=== PATIENT | male | born 1945 | race Caucasian/White ===

== ENCOUNTER 2018-03-31 13:03 | Inpatient (IN) | payer MEDICARE, MEDICAID ==
[2018-03-31 13:42] LABS: #Lymphocytes 0.9 thou/uL (1.20-3.40); #Monocytes 0.9 thou/uL (0.11-0.59); #Neutrophils 7.5 thou/uL (1.40-6.50); %Basophils 0.3 % (0.0-1.0); %Eosinophils 0.4 % (0.0-10.0); %Lymphocytes 9.6 % (21.0-51.0); %Monocytes 9.4 % (0.0-10.0); %Neutrophils 80.3 % (42.0-75.0); Hemoglobin 8.1 g/dL (14.0-18.0); Mean Corpuscular HGB CONC 30.7 g/dL (32.0-36.0); Mean Corpuscular Hemoglobin 28.6 pg (27.0-31.0); Mean Corpuscular Volume 93.4 fL (78.0-98.0); Platelet Count 219 thou/uL (130-400); RBC Distribution Width 12.9 % (11.5-14.5); Red Blood Cell (RBC) Count 2.82 mill/uL (4.70-6.10); White Blood Cell (WBC) Count 9.3 thou/uL (4.8-10.8)
[2018-03-31 14:04] LABS: ALT (SGPT) 11 U/L (8-55); AST (SGOT) 10 U/L (5-34); Albumin 3.5 g/dL (3.4-4.8); Alkaline Phosphatase 96 U/L (40-150); Anion Gap 14 mmol/L (10-20); BUN (Urea Nitrogen) 57 mg/dL (8.4-25.7); Bilirubin, Total 0.4 mg/dL (0.2-1.2); Calc. Creatinine Clearance 0 mL/min (70-130); Calcium 8.7 mg/dL (7.8-10.44); Carbon Dioxide 30 mmol/L (23-31); Chloride 100 mmol/L (98-107); Estimated GFR-MDRD 14; Globulin 4.8 g/dL (2.4-3.5); Glucose 103 mg/dL (80-115); Magnesium 1.9 mg/dL (1.6-2.6); Potassium 4.2 mmol/L (3.5-5.1); Protein, Total 8.3 g/dL (5.8-8.1); Sodium 140 mmol/L (136-145)
[2018-03-31 14:25] LABS: Bilirubin Negative (Negative); Blood, Urine Moderate (Negative); Clarity CLEAR (Clear); Glucose, Urine (Dipstick) Negative (Negative); Leukocyte Small (Negative); Nitrite Negative (Negative); Protein, Urine (Dipstick) 100 mg/dL (Neg-Trace); Specific Gravity, Urine 1.011 (1.002-1.036); Urobilinogen 0.2 mg/dL (0.2-1.0)
[2018-03-31 14:35] LABS: Bacteria/HPF 1+ HPF (None Seen); Hyaline Casts/LPF 0-3 HYALINE CAST LPF (0-3 Hyaline); Squamous Epithelial None Seen HPF (0-3); WBC/HPF 21-50 HPF (0-3)
[2018-03-31] MEDS ORDERED: Sodium Chloride 0.9% 100 ML ONE (16:06)
[2018-03-31] MEDS ORDERED: cefTRIAXone\\ROCEPHIN 1 GM VIAL ONE (16:06)
[2018-03-31] MEDS ORDERED: Furosemide 40 MG/4 ML VIAL ONE (16:27)
[2018-03-31] MEDS ORDERED: Acetaminophen 325 MG TAB PO PRN (17:22)
[2018-03-31] MEDS ORDERED: Senokot S 8.6-50 MG TAB PO PRN (17:22)
[2018-03-31] MEDS ORDERED: Guaifenesin DM 100-10/5 ML UDCUP PO PRN (17:22)
[2018-03-31] MEDS ORDERED: Furosemide 100 MG/10 ML VIAL SLOW IVP SCH (17:30)
[2018-03-31 18:14] LABS: Iron 31 ug/dL (65-175); Iron Binding Capacity, Total 238 mcg/dL (261-462)
[2018-03-31 18:19] VITALS: BP 127/61; TEMP 97.4
[2018-03-31 18:21] VITALS: BMI 38.7
[2018-03-31] MEDS ORDERED: Lorazepam 2 MG/ML VIAL SLOW IVP PRN (18:31)
--- NOTE | 2018-03-31 20:17 | RAD ---
FRONTAL RADIOGRAPH CHEST PORTABLE UPRIGHT 03/31/18 COMPARISON: None. HISTORY: Shortness of breath, abnormal laboratory assessment. FINDINGS: The cardiac silhouette is prominent. Mild pulmonary vascular congestion. Mild elevation of a right he midiaphragm. No pneumothorax, pleural fluid, focal consolidation or alveolar edema. IMPRESSION: Prominent cardiac silhouette and pulmonary vascular congestion. POS: [facility]
[2018-03-31] MEDS ORDERED: risperiDONE 1 MG TAB PO SCH (21:00)
[2018-03-31] MEDS ORDERED: Atorvastatin Calcium 20 MG TAB PO SCH (21:00)
--- NOTE | 2018-03-31 21:34 | HP ---
REASON FOR ADMISSION: Acute kidney injury, UTI, volume overload. HISTORY OF PRESENTING ILLNESS: The patient had routine labs done yesterday in Dr. Isaiah Caruso, his [facility] physician's office. Apparently, labs showed elevated creatinine from his baseline. He w as asked to come to the emergency room. Patient has shortness of breath. He states he feels bad but cannot explain any further. No chest pain or palpitations. He has cough with expectoration due to his smoking habit. No fever. I discussed with Ms. Gilliam, the nurse taking care of him at the correction at [facility]. There is no history of recent antibiotic intake. No history of diarr hea or anything out of the ordinary from last 4 weeks. Patient apparently smokes almost a pack a day at the correction. He normally mobilizes himself into a wheelchair and back into his bed. PAST MEDICAL AND SURGICAL HISTORY: Chronic kidney disease stage 3, dyslipidemia, hypertension, COPD, schizoaffective disorder, dyslipidemia, history of CHF, benign prostatic hypertrophy, chronic venous stasis in lower extremities. CURRENT MEDICATIONS: Per correction records, patient is on Cardizem CD 120 mg daily, Risperdal 2 m g p.o. at bedtime, lovastatin 20 mg at bedtime, vitamin D 2000 units p.o. daily, Lasix 40 mg p.o. madie ly, Flomax 0.4 mg p.o. daily, DuoNebs q.6 hourly, Breo Ellipta inhaler daily, aspirin 81 mg p.o. gregg y. ALLERGIES: No known drug allergies. PERSONAL HISTORY: Smokes one pack a day. Does not abuse alcohol or drugs. 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 FAMILY HISTORY: The patient is not nor does he have any children per patient. Mother i n her 80s had a lump in her chest. Father of old age at 70 years per patient. CODE STATUS: FULL. Power of business attorney is Mr. Hodan Ramirez, brother, , alternate number for correction is [phone]. REVIEW OF SYSTEMS: The following complete review of systems was negative, unless otherwise mentioned in the HPI or below: Constitutional: Weight loss or gain, ability to conduct usual activities. Skin: Rash, itching. Eyes: Double vision, pain. ENT/Mouth: Nose bleeding, neck stiffness, pain, tenderness. Cardiovascular: Palpitations, dyspnea on exertion, orthopnea. Respiratory: Shortness of breath, wheezing, cough, hemoptysis, fever or night sweats. Gastrointestinal: Poor appetite, abdominal pain, heartburn, nausea, vomiting, constipation, or diarr hea. Genitourinary: Urgency, frequency, dysuria, nocturia. Musculoskeletal: Pain, swelling. Neurologic/Psychiatric: Anxiety, depression. Allergy/Immunologic: Skin rash, bleeding tendency. PHYSICAL EXAMINATION: GENERAL: The patient is a 72-year-old male who is currently in mild respiratory distress. VITAL SIGNS: Blood pressure 130/58, pulse 70 per minute, respiratory rate 30 per minute, temperature 97.6 degrees Fahrenheit, saturating 95% on room air. NECK: Supple. There is mild elevation in JVD. EYES: Extraocular muscles intact. Pupils reacting to light. ORAL CAVITY: Mucous membranes are dry. No exudates or congestion. CARDIOVASCULAR SYSTEM: S1, S2 heard. Regular rhythm. RESPIRATORY SYSTEM: Air entry 1+ bilateral. Scattered rales plus in the infrascapular area. Rhonch i plus bilateral. ABDOMEN: Soft, bowel sounds heard. No tenderness, rigidity or guarding. EXTREMITIES: Patient has peripheral edema and also has dry skin with flaking especially in both lowe r legs areas. No obvious ulcers seen. Peripheral pulses are 1+ bilateral, no ischemic ulcerations o r gangrene. CENTRAL NERVOUS SYSTEM: No gross focal deficits noted. Patient is alert and fairly oriented. PSYCHIATRIC SYSTEM: The patient's mood is euthymic. No obvious hallucinations or delusions are pres ent. LABORATORY DATA AND IMAGING DATA: White count of 9, hemoglobin and hematocrit 8 and 26, platelet cou nt 219, MCV is 93 with 80% neutrophils. Electrolytes are stable. Potassium 4.2, BUN 57, creatinine 4.2, serum bicarbonate 30, glucose 103 and magnesium 1.9. Liver enzymes within normal limits. Album in is 3.5. UA shows moderate blood, small leukocyte esterase, 1+ bacteria with 21-50 wbcs. Chest x- ray by my review shows cardiomegaly with pulmonary vascular congestion and likely COPD changes by my review. EKG is being done and we will review once it is done. CLINICAL IMPRESSION AND PLAN: The patient will be admitted to medical floor for acute kidney injury on top of chronic kidney disease stage 3. His current creatinine levels are 4.2, apparently he was a round 3. He will be on Lasix 80 mg IV q.12 hours. We will obtain a BNP level stat echo with 2D Dopp ler for quantification of his ejection fraction with prior history of congestive heart failure. We w ill continue his aspirin, Lipitor, Cardizem CD, Risperdal and Flomax as before. The patient also has a chronic anemia due to kidney disease and we will obtain iron studies including ferritin. Beenae d with Dr. Molina, air valve repairer application packaging consultant. I have tried multiple times to contact Mr. Hodan Ramirez, patient's brother and POA and I am unable to reach him at the above number as mentioned.
[2018-03-31] MEDS ORDERED: Nicotine 21 MG PATCH TD SCH (23:00)
--- NOTE | 2018-04-01 03:11 | CON ---
DATE OF CONSULTATION: 03/31/2018 CONSULTING PHYSICIAN: Cassy Araujo M.D. REASON FOR CONSULTATION: Acute kidney injury. REASON FOR ADMISSION: Abnormal labs. HISTORY OF PRESENT ILLNESS: This is a 72-year-old male with history of schizophrenia, hyperlipidemia, hypertension, chronic kidney disease, schizoaffective disorder, who came to the hospital with above complaints and was found to have a creatinine of 4.0. The patient denies any complaint, but seems like he is having shortness of breath, no nausea, vomiting, no chest pain , no palpitation, no fever or chills reported. PAST MEDICAL HISTORY: Positive for hypertension, hyperlipidemia, chronic kidney disease, schizoaffective disorder, COPD. PAST SURGICAL HISTORY: Not available. HOME MEDICATIONS: Not available. ALLERGIES: No known drug allergies. SOCIAL HISTORY: No smoking, alcohol or drugs. FAMILY HISTORY: No history of kidney disease. REVIEW OF SYSTEMS: The following complete review of systems was negative, unless otherwise mentioned in the HPI or below: Constitutional: Weight loss or gain, ability to conduct usual activities. Skin: Rash, itching. Eyes: Double vision, pain. ENT/Mouth: Nose bleeding, neck stiffness, pain, tenderness. Cardiovascular: Palpitations, dyspnea on exertion, orthopnea. Respiratory: Shortness of breath, wheezing, cough, hemoptysis, fever or night sweats. Gastrointestinal: Poor appetite, abdominal pain, heartburn, nausea, vomiting, constipation, or diarrhea. Genitourinary: Urgency, frequency, dysuria, nocturia. Musculoskeletal: Pain, swelling. Neurologic/Psychiatric: Anxiety, depression. Allergy/Immunologic: Skin rash, bleeding tendency. PHYSICAL EXAMINATION: GENERAL: This is an obese male, in no apparent distress. VITAL SIGNS: Temperature 97.4, pulse 63, respiratory rate 18, blood pressure __ ___. HEENT: Head atraumatic, normocephalic. Oral mucosa is moist. NECK: Supple. HEART: S1, S2 heard. Rate and rhythm regular. RESPIRATORY: Clear. GASTROINTESTINAL: Abdomen is soft. MUSCULOSKELETAL: 1+ edema. DERMATOLOGIC: No rash. NEUROLOGIC: Alert, awake. PSYCHIATRIC: Mood and affect normal. LABORATORY AND X-RAY FINDINGS: Hemoglobin is 8.1, potassium is 4.2, BUN 57, creatinine is 4.2. ASSESSMENT AND PLAN: 1. Acute kidney injury on chronic kidney stage IV, most likely cardiorenal syndrome. Chest x-ray with fluid overload. We will start on IV Lasix and monitor. No acute indication for dialysis. 2. Edema. 3. Cardiorenal syndrome. 4. Hypertension stable. 5. Anemia. Check iron studies and will follow. Plan is to start IV Lasix and will monitor. No acute indication for dialysis. Monitor closely. Thank you for the consult. JANENE
[2018-04-01 03:53] LABS: #Eosinphils 0.1 thou/uL (0.0-0.7); #Lymphocytes 2.3 thou/uL (1.20-3.40); #Neutrophils 7.8 thou/uL (1.40-6.50); %Eosinophils 0.6 % (0.0-10.0); %Lymphocytes 20.8 % (21.0-51.0); %Monocytes 8.8 % (0.0-10.0); %Neutrophils 69.8 % (42.0-75.0); Hemoglobin 7.6 g/dL (14.0-18.0); Mean Corpuscular HGB CONC 28.6 g/dL (32.0-36.0); Mean Corpuscular Hemoglobin 28.5 pg (27.0-31.0); Mean Corpuscular Volume 99.6 fL (78.0-98.0); Mean Platelet Volume 7.7 fL (7.4-10.4); Platelet Count 198 thou/uL (130-400); RBC Distribution Width 13.2 % (11.5-14.5); Red Blood Cell (RBC) Count 2.65 mill/uL (4.70-6.10); White Blood Cell (WBC) Count 11.2 thou/uL (4.8-10.8)
[2018-04-01 04:09] LABS: Iron Binding Capacity, Total 215 mcg/dL (261-462)
[2018-04-01 04:10] LABS: Iron 44 ug/dL (65-175)
[2018-04-01 04:12] LABS: Albumin 3.2 g/dL (3.4-4.8); Anion Gap 25 mmol/L (10-20); BUN (Urea Nitrogen) 57 mg/dL (8.4-25.7); BUN/Creatinine Ratio 12.53; Calc. Creatinine Clearance 28 mL/min (70-130); Calcium 9.4 mg/dL (7.8-10.44); Carbon Dioxide 22 mmol/L (23-31); Chloride 99 mmol/L (98-107); Estimated GFR-MDRD 13; Glucose 294 mg/dL (80-115); Phosphorus 10.8 mg/dL (2.3-4.7); Sodium 138 mmol/L (136-145)
[2018-04-01] MEDS ORDERED: Furosemide 100 MG/10 ML VIAL SLOW IVP SCH (06:00)
[2018-04-01] MEDS ORDERED: Famotidine 20 MG TAB PO SCH (09:00)
[2018-04-01] MEDS ORDERED: Enoxaparin Sodium 30 MG/0.3 ML SYRINGE SC SCH (09:00)
[2018-04-01] MEDS ORDERED: Nicotine 21 MG PATCH TD SCH (09:00)
[2018-04-01] MEDS ORDERED: Tamsulosin HCl 0.4 MG CAP PO SCH (09:00)
[2018-04-01] MEDS ORDERED: Calcium Chloride 1 GM/10 ML Abboject SYRINGE ONE (18:20)
[2018-04-01] MEDS ORDERED: EPINEPHrine 1 MG/10 ML Abboject SYRINGE ONE (18:20)
[2018-04-01] MEDS ORDERED: Sodium Bicarb 50 MEQ/50 ML Abboject 8.4% SYRINGE ONE (18:20)
--- NOTE | 2018-04-01 21:44 | DS ---
DATE OF ADMISSION: 03/31/2018 DATE OF : 04/01/2018 BRIEF COURSE DURING HOSPITALIZATION: Patient initially was sent from [facility] for elevated creatinine. On arrival in ER, the patient had a mild respiratory distress with volu me overload. He was given a dose of Lasix and he is stabilized on nasal cannula. He was also evalua katelin by Dr. Molina for Nephrology. The plan was to give a trial of Lasix before initiating on dialys is. Around 3:10 a.m., patient was found to be unresponsive by the staff nurse. A code blue was call ed and chest compressions and ACLS protocol was followed. He was given a total of 6 doses of epineph rine, bicarbonate, and calcium chloride. At around 03:32 a.m., patient's CPR was stopped due to his brother requesting not to continue the same. He wanted him to be a DO NOT RESUSCITATE. The patient was declared at 03:32 a.m. PRIMARY CAUSE OF : Acute renal failure, metabolic acidosis, hyperkalemia, volume overload due t o renal failure factors. SECONDARY CAUSES OF : Include underlying schizoaffective disorder, chronic obstructive pulmonar y disease with heavy history of smoking, history of congestive heart failure. Patient's body will be released to family per hospital protocol.
== END 2018-04-01 03:32 | disposition expired | DRG 683 ==
LOC: ERS 13:03 → ONC 17:43
PROVIDERS: ADMIT Internal Medicine; ATTEND Internal Medicine
PROC: 5A12012 Performance of Cardiac Output, Single, Manual (ICD-10-PCS; principal; 2018-04-01)
DX: N17.9 Acute kidney failure, unspecified (principal); E87.2 Acidosis; I13.0 Hypertensive heart and chronic kidney disease with heart failure and stage 1 through stage 4 chronic kidney disease, or unspecified chronic kidney disease; N39.0 Urinary tract infection, site not specified; N18.4 Chronic kidney disease, stage 4 (severe); F25.9 Schizoaffective disorder, unspecified; I50.9 Heart failure, unspecified; J44.9 Chronic obstructive pulmonary disease, unspecified; D63.1 Anemia in chronic kidney disease; R06.03 Acute respiratory distress; I87.8 Other specified disorders of veins; Z66 Do not resuscitate; E87.5 Hyperkalemia; E78.00 Pure hypercholesterolemia, unspecified; F17.210 Nicotine dependence, cigarettes, uncomplicated; Z99.3 Dependence on wheelchair; Z79.82 Long term (current) use of aspirin; Z79.899 Other long term (current) drug therapy
CPT/HCPCS: 36415; 36416; 71045; 80048; 80053; 80069; 81003; 81015; 82728; 83540; 83550; 83735; 83880; 85014; 85018; 85025; 87040; 87086; 92950; 93005; 94640; 96365; 96375; J0171; J0696; J1940; J1956; J2060; J7050; J7620